=== PATIENT | female | born 1995 | race Two or more races ===

== ENCOUNTER 2025-02-28 14:19 | Outpatient (RCR) | payer MEDICAID, SELFPAY ==
--- NOTE | 2025-02-28 16:14 | PTNOTE_ITS ---
PT OP Initial Eval Patient Information Outpatient Physical Therapy Treatment Date: 02/28/25 Visit Reasons: CERVICOGENIC HEADACHE Medical Diagnosis: Cervicogenic Headache Treatment Dx #1: Tension Headache Treatment Dx #2: Neck Pain Start of Care: 02/28/25 Date of Onset: December 2024 Smoking Status Smoking Status: Never smoker Initial Assessment Subjective: Pt is a 29 y/o female reports of tension headache started in December 2024. Pt denies of trauma or injury. Pt's overall symptoms has improved but still experience headache 3-4 x weekly. Pt has limitation with work duties, chores, self care, taking care of her kids, and performing recreational activities. Objective: C/S AROM: all motions are WFL except flexion and right sidebending with pain Scapula MMTs: grossly 3+/5 BUE AROM: all motions are WNL BUE MMTs: grossly 3+/5 Palpation: TTP and increase tone suboccipitals R>L; Hypomobile C3-C5 facets; Increase tone upper trape and levatorat L>R Assessment: Pt demonstrate neck pain with increase muscular restriction in the upper cervical redion leading to difficulty with ADLs. Pt will benefit from physical therapy to increase ROM, strength, and work on flexibility Short Term and [employer] Goals 1) Decrease headache in 6 wks to be able to resume work duties with less limitation 2) Increase C/S AROM WNL in 6 wks to be able to perform chores 3) Increase scapula MMTs grossly 4-/5 in 6 wks to be able to perform recreational activities 4) Decrease neck pain to 2/10 in 6 wks to be able to perform self care activities 5) Indep with HEP Treatment Plan 1) Manual Therapy 2) Therapeutic Activities 3) Therapeutic Exercises 4) Modalities (ice, heat) Frequency and Duration: 2 x wk for 6 wks Certification Dates: 02/28/25 to 05/31/25 Procedure Charges OP PT Eval Mod Complex 30 minutes: Yes
== END 2025-03-09 23:59 | disposition home or self-care (01) ==
LOC: CPTX 14:19
PROVIDERS: PCP Student in an Organized Health Care Education/Training Program; Referring Provider Student in an Organized Health Care Education/Training Program; Visit Provider Student in an Organized Health Care Education/Training Program
DX: G44.86 Cervicogenic headache (principal); G44.209 Tension-type headache, unspecified, not intractable; M54.2 Cervicalgia
CPT/HCPCS: 97162

== ENCOUNTER 2025-04-07 13:00 | Outpatient (RCR) | payer MEDICAID, SELFPAY ==
--- NOTE | 2025-03-13 16:51 | PT.ODAYNRPT ---
PT Outpatient Daily Note OP Daily Note Outpatient Physical Therapy Treatment Date: 03/13/25 Visit Reasons: CERVICOGENIC HEADACHE Subjective: Pt denies CUI at this time. Objective: PLease see flow sheet for ther ex list. Assessment: Performed occipital release and STM, no complaints with todays interventions. Plan: Assess response to treatment. Length of Time (minutes) of Treatment: 30 Minutes Procedure Charges Therapeutic Exercise 30 minutes: Yes
--- NOTE | 2025-03-18 16:05 | PT.ODAYNRPT ---
PT Outpatient Daily Note OP Daily Note Outpatient Physical Therapy Treatment Date: 03/18/25 Visit Reasons: CERVICOGENIC HEADACHE Subjective: Pt notice less headache lately. Pt denies of soreness after last session. Objective: Please see flow chart for list of ther ex performed Assessment: decrease suboccipitals tension STM. Pt demonstrate good form with rows/low rows YTB exercises Plan: Continue with PT Length of Time (minutes) of Treatment: 30 Minutes Procedure Charges Therapeutic Exercise 30 minutes: Yes
--- NOTE | 2025-03-27 16:38 | PT.ODAYNRPT ---
PT Outpatient Daily Note OP Daily Note Outpatient Physical Therapy Treatment Date: 03/27/25 Visit Reasons: CERVICOGENIC HEADACHE Subjective: pt reports progress with symptoms, mentioned she started to go to the gym. Objective: Please see flow sheet for ther ex list. Assessment: Pt presents with decrease complaints of pain to progress interventions in future visits. Plan: Continue with pOC. Length of Time (minutes) of Treatment: 30 Minutes Procedure Charges Therapeutic Exercise 30 minutes: Yes
--- NOTE | 2025-04-02 16:13 | PT.ODAYNRPT ---
PT Outpatient Daily Note OP Daily Note Outpatient Physical Therapy Treatment Date: 04/02/25 Visit Reasons: CERVICOGENIC HEADACHE Subjective: Pt reports she had a headache over the weekend and performed HEP which helped relieve some of the symptoms. Objective: Please see flow sheet for ther ex list. Assessment: Performed occipital release and STM, pt tolerated well. Plan: Continue with pOC. Length of Time (minutes) of Treatment: 30 Minutes Procedure Charges Therapeutic Exercise 30 minutes: Yes
--- NOTE | 2025-04-07 13:29 | PTNOTE_ITS ---
PT Outpatient Daily Note OP Daily Note Outpatient Physical Therapy Treatment Date: 04/07/25 Visit Reasons: CERVICOGENIC HEADACHE Subjective: Pt's CUI comes and go. Pt also mentioned more CUI since starting physical therapy and is unsure if it's related to PT intervention. Pt wants to try a few more sessions prior to stopping physical therapy. Objective: Please see flow chart for list of ther ex perfomed Assessment: upper trape and levator demonstrate normal length and stretching was not necessary. Pt still exhibit suboccipitals tightness L>R; improved post STM Plan: Continue with PT Length of Time (minutes) of Treatment: 30 Minutes Procedure Charges Therapeutic Exercise 15 minutes: Yes Manual Conche Loader And Unloader 15 minutes: Yes
== END 2025-04-08 23:59 | disposition home or self-care (01) ==
LOC: CPTX 13:00
PROVIDERS: PCP Student in an Organized Health Care Education/Training Program; Referring Provider Student in an Organized Health Care Education/Training Program; Visit Provider Student in an Organized Health Care Education/Training Program
DX: G44.209 Tension-type headache, unspecified, not intractable (principal); M54.2 Cervicalgia; G44.86 Cervicogenic headache
CPT/HCPCS: 97110; 97140